=== PATIENT | female | born 1980 | race Caucasian/White ===

== ENCOUNTER 2016-12-30 11:09 | Emergency (ER) | payer OTHER | END 2016-12-30 14:05 | disposition home or self-care (01) | LOC: ER 11:09 | DX: S43.401A Unspecified sprain of right shoulder joint, initial encounter (principal); S13.4XXA Sprain of ligaments of cervical spine, initial encounter; M54.12 Radiculopathy, cervical region; Y93.9 Activity, unspecified; Y92.019 Unspecified place in single-family (private) house as the place of occurrence of the external cause; R51 Headache; F32.9 Major depressive disorder, single episode, unspecified; F17.210 Nicotine dependence, cigarettes, uncomplicated; Z88.0 Allergy status to penicillin; Z88.2 Allergy status to sulfonamides; Z79.899 Other long term (current) drug therapy | CPT/HCPCS: 72040; 73030; 96372; 99070; 99283-25 ==

== ENCOUNTER 2017-01-28 11:01 | Emergency (ER) | payer OTHER ==
[2017-01-28 11:50] LABS: BASO # 0.1 10_X3_uL (0.0-0.1); EOS # 0.2 10_X3_uL (0.0-0.4); EOS % 3.6 % (0.7-5.8); GRAN # 3.2 10_X3_uL (1.6-6.1); GRAN % 60.3 % (34.0-71.1); HEMATOCRIT 40.9 % (34-45); HEMOGLOBIN 14.6 g/dL (11.2-15.7); LYMPH # 1.5 10_X3_uL (1.2-3.7); MEAN CORPUSCULAR HEMOGLOBIN 34.3 pg (27.0-33.0); MEAN CORPUSCULAR HGB CONC 35.7 g/dL (32.0-36.0); MONO # 0.3 10_X3_uL (0.2-0.9); MONO % 6.1 % (4.7-12.5); PLATELET COUNT 267 x10_3/uL (182-369); RED BLOOD COUNT 4.26 x10_6/uL (3.9-5.2); RED CELL DISTRIBUTION WIDTH 12.3 % (11.7-14.4); WHITE BLOOD COUNT 5.2 x10_3/uL (4.0-10.0)
== END 2017-01-28 12:39 | disposition home or self-care (01) ==
LOC: ER 11:01
PROVIDERS: Family Medicine
DX: J40 Bronchitis, not specified as acute or chronic (principal); J02.9 Acute pharyngitis, unspecified; Z88.0 Allergy status to penicillin; Z88.2 Allergy status to sulfonamides; Z79.899 Other long term (current) drug therapy
CPT/HCPCS: 36415; 85025; 87400; 99282

== ENCOUNTER 2017-02-08 10:50 | Emergency (ER) | payer OTHER | END 2017-02-08 12:52 | disposition home or self-care (01) | LOC: ER 10:50 | DX: H66.91 Otitis media, unspecified, right ear (principal); F17.210 Nicotine dependence, cigarettes, uncomplicated; Z79.899 Other long term (current) drug therapy; Z88.0 Allergy status to penicillin; Z88.2 Allergy status to sulfonamides ==

== ENCOUNTER 2017-04-07 18:30 | Emergency (ER) | payer OTHER | END 2017-04-07 21:09 | disposition home or self-care (01) | LOC: ER 18:30 | DX: M54.12 Radiculopathy, cervical region (principal); R51 Headache; J30.2 Other seasonal allergic rhinitis; G25.81 Restless legs syndrome; F17.210 Nicotine dependence, cigarettes, uncomplicated; Z79.899 Other long term (current) drug therapy | CPT/HCPCS: 96372; 99070; 99283-25 ==